=== PATIENT | female | born 1980 | race Caucasian/White ===

== ENCOUNTER 2017-11-13 06:56 | Day surgery (SDC) | payer BC, MEDICAID ==
[~2017-11-13 06:56] MED LIST: Dextrose 5%-0.45% NaCl 1,000 ML IV SCH; Midazolam 1 MG/ML 2 ML SDV ONE; Sodium Chloride 0.9% 10 ML Syringe FLUSH PRN; fentaNYL 100 MCG/2 ML SDV ONE
[2017-11-13] MEDS ORDERED: Dextrose 5%-0.45% NaCl 1,000 ML IV SCH (07:00)
[2017-11-13] MEDS ORDERED: fentaNYL 100 MCG/2 ML SDV IV ONE ×2 (07:37→07:38)
[2017-11-13] MEDS ORDERED: Midazolam 1 MG/ML 2 ML SDV IV ONE ×2 (07:38)
--- NOTE | 2017-11-13 14:39 | OR ---
DATE: 11/13/2017 PROCEDURE: Esophagogastroduodenoscopy and multiple pinch biopsies. INSTRUMENT USED: GIF-H180 Olympus video panendoscope. PREMEDICATIONS: No oral topical anesthesia used. Fentanyl 100 mcg intravenous, Versed 2 mg intravenous. The procedure was done under pulse oximetry, BP recording, and cardiac monitoring. INDICATION: The patient with persistent abdominal pain and episodes of vomiting, as well as history of hematemesis, alcohol habituation. Has had longstanding difficulties of diarrhea, diabetes. Esophagogastroduodenoscopy is performed for detection of any active erosive lesions, Lynne esophagus and/or malignancy also under consideration, H. pylori status to be determined, small bowel biopsies to be obtained for celiac disease, endoscopic hemostasis therapy if needed. The scope was passed with ease. Adequate visualization of the esophagus was made from [id number] areas. No upper esophageal lesions identified. No distal esophageal stricture. No uphill or downhill esophageal varices. No Marybeth-Duncan tear. No evidence of erosive esophagitis by [place] criteria. No esophageal polyp or tumor mass identified. Z-line was seen at around 40 cm distal to the oral verge, configuration consistent with grade 1 by ZAP classification. No proximal gastric varices noted. Gastric fundus examination by retroflexion showed no polypoid lesions. No gastric ulcer, malignant mass, or vascular ectasia identified. Duodenal bulb showed no ulcer. Visualized second part of the duodenum was unremarkable. Multiple pinch biopsies 4 in number, were taken from different areas of the second part of the duodenum, and tissues were also obtained from the duodenal bulb at 9 and 12 o'clock positions and sent for any histopathologic evidence of celiac disease. Multiple pinch biopsies were taken from the gastric antrum and proximal body and sent for PyloriTek test for H. pylori and histopathology. No bleeding was noted from any of the visualized areas at the completion of examination. Photographs were taken of the duodenal bulb, gastric antrum, fundus, and distal esophagus. IMPRESSION: Normal study. The patient tolerated the procedure well. [facility] /[id number]
== END 2017-11-13 09:53 | disposition home or self-care (01) ==
LOC: DL.ENDO 06:56
PROVIDERS: ATTEND Internal Medicine Gastroenterology
DX: K31.89 Other diseases of stomach and duodenum (principal); B96.81 Helicobacter pylori [H. pylori] as the cause of diseases classified elsewhere; R11.10 Vomiting, unspecified; E11.9 Type 2 diabetes mellitus without complications; F17.210 Nicotine dependence, cigarettes, uncomplicated; E66.09 Other obesity due to excess calories; E78.5 Hyperlipidemia, unspecified; E28.2 Polycystic ovarian syndrome; Z79.84 Long term (current) use of oral hypoglycemic drugs
CPT/HCPCS: 43239; 87077; J7042; J2250; J3010

== ENCOUNTER 2022-02-07 10:22 | Emergency (ER) | payer MEDICARE, OTHER ==
[2022-02-07 11:22] LABS: CHLORIDE,CL 102 mmol/L (98-107); SODIUM,NA 139 mmol/L (136-145)
[2022-02-07 11:24] LABS: ACETAMINOPHEN 0 ug/mL (10-30 (Therapeutic)); ESTIMATED GFR 86 mL/min (>=60)
[2022-02-07 11:57] LABS: AMPHETAMINES,URINE NEGATIVE (NEGATIVE); BARBITURATES,URINE NEGATIVE (NEGATIVE); BENZODIAZEPINE,URINE NEGATIVE (NEGATIVE); MDMA (ECSTASY), URINE NEGATIVE (NEGATIVE); METHADONE,URINE NEGATIVE (NEGATIVE); METHAMPHETAMINES,URINE NEGATIVE (NEGATIVE); OPIATES,URINE NEGATIVE (NEGATIVE); OXYCODONE,URINE NEGATIVE (NEGATIVE); PHENCYCLIDINE,URINE NEGATIVE (NEGATIVE); TCA,URINE NEGATIVE (NEGATIVE)
== END 2022-02-07 12:48 ==
LOC: DL.ED 10:22
DX: F23 Brief psychotic disorder (principal); E11.9 Type 2 diabetes mellitus without complications; E78.00 Pure hypercholesterolemia, unspecified; Z79.899 Other long term (current) drug therapy
CPT/HCPCS: 36415; 80053; 80143; 80179; 80305-QW; 80307; 81001; 81025; 83735; 84443; 85025; 99284